=== PATIENT | male | born 1950 | race Hispanic/Latino ===

== ENCOUNTER 2019-12-01 20:28 | Inpatient (IN) | payer MEDICARE ==
[~2019-12-01] VITALS: Ht 180.3 cm; Wt 83.6 kg
[~2019-12-01 20:28] MED LIST: AMIO200T5 PO; ASPI-555 PO; ATOR40TA69 PO; CLOP75TA14 PO; METO-408 PO; VITAMIN D PO
[2019-12-01 22:13] LABS: BASOPHILS % (AUTO) 0.2 % (0.0-5.0); HEMATOCRIT 45.6 % (42-54); LYMPHOCYTES % (AUTO) 3.4 % (21.0-51.0); MEAN CORPUSCULAR HEMOGLOBIN 31.6 pg (27.0-33.0); MEAN CORPUSCULAR HGB CONC 35.5 g/dL (32.0-36.0); MEAN CORPUSCULAR VOLUME 88.9 fL (79-99); MONOCYTES % (AUTO) 3.4 % (3.0-13.0); NEUTROPHILS % (AUTO) 92.6 % (40.0-77.0); PLATELET COUNT (AUTO) 261 K/uL (130-400); RED BLOOD CELL COUNT(AUTO) 5.13 MIL/uL (4.50-6.20); RED CELL DISTRIBUTION WIDTH 12.6 % (11.0-15.5); WHITE BLOOD COUNT (AUTO) 15.5 K/uL (4.8-10.8)
[2019-12-01 22:14] LABS: APPEARANCE,URINE Clear (CLEAR); BILIRUBIN,URINE Negative (NEGATIVE); COLOR,URINE Yellow (YELLOW); GLUCOSE, URINE (UA) Negative (NEGATIVE); KETONES,URINE >=80 mg/dL (NEGATIVE); LEUKOCYTE ESTERASE ,URINE Negative (NEGATIVE); NITRATE,URINE Negative (NEGATIVE); OCCULT BLOOD,URINE Negative (NEGATIVE); PH,URINE 6.5 (5.0-8.0); PROTEIN,URINE POS 1+ mg/dL (NEGATIVE)
[2019-12-01 22:29] LABS: ALBUMIN 4.9 g/dL (3.5-5.0); BILIRUBIN,TOTAL 1.2 mg/dL (0.2-1.0); CREATININE 1.2 mg/dL (0.5-1.5); TOTAL PROTEIN, SERUM 8.8 g/dL (6.0-8.3)
[2019-12-01 22:31] LABS: POTASSIUM 2.6 mmol/L (3.5-5.1)
[2019-12-01] MEDS ORDERED: POTASSIUM CHLORIDE 20MEQ/100ML 100 ML IV ONE (22:48)
[2019-12-01] MEDS ORDERED: ONDANSETRON HCL 4 MG/2 ML VIAL ONE (22:48)
[2019-12-01] MEDS ORDERED: MORPHINE SULFATE 4 MG/1ML SYG ONE (22:49)
[2019-12-01] MEDS ORDERED: SODIUM CHLORIDE 0.9% 1000ML 1,000 ML IV ONE (22:49)
[2019-12-01] MEDS ORDERED: LIDOCAINE HCL-MPF 1% 2ML VIAL ONE (23:00)
[2019-12-02] MEDS ORDERED: SODIUM CHLORIDE 0.9% 1000ML 1,000 ML IV SCH (02:11)
[2019-12-02] MEDS ORDERED: ONDANSETRON HCL 4 MG/2 ML VIAL IV PRN (02:15)
[2019-12-02] MEDS ORDERED: HYDRALAZINE HCL 20 MG/ML VIAL IV PRN (02:15)
[2019-12-02] MEDS ORDERED: POTASSIUM CHLORIDE 10MEQ/100ML 100 ML IV PRN (02:15)
[2019-12-02] MEDS ORDERED: LIDOCAINE HCL-MPF 1% 2ML VIAL IV PRN (02:15)
[2019-12-02] MEDS ORDERED: ACETAMINOPHEN 325 MG TAB PO PRN ×2 (02:15)
[2019-12-02] MEDS ORDERED: LACTULOSE 20 GM/30 ML UDCUP PO PRN (02:15)
[2019-12-02] MEDS ORDERED: MORPHINE SULFATE 2 MG/ML 1ML SYG IV PRN (02:15)
[2019-12-02] MEDS ORDERED: PHARMACY COMMUNICATION MISC SCH (02:30)
[2019-12-02] MEDS ORDERED: SODIUM CHLORIDE 0.9% 1000ML 1,000 ML IV ONE (02:53)
[2019-12-02] MEDS ORDERED: ZOSYN 3.375GM+NS 50ML 50 ML IV ONE ×3 (02:53→20:12)
[2019-12-02 04:33] LABS: BASOPHILS % (AUTO) 0.1 % (0.0-5.0); HEMATOCRIT 40.9 % (42-54); LYMPHOCYTES % (AUTO) 6.5 % (21.0-51.0); MEAN CORPUSCULAR HEMOGLOBIN 32.2 pg (27.0-33.0); MEAN CORPUSCULAR HGB CONC 35.5 g/dL (32.0-36.0); MEAN CORPUSCULAR VOLUME 90.7 fL (79-99); MONOCYTES % (AUTO) 6.2 % (3.0-13.0); NEUTROPHILS % (AUTO) 86.8 % (40.0-77.0); PLATELET COUNT (AUTO) 224 K/uL (130-400); RED BLOOD CELL COUNT(AUTO) 4.51 MIL/uL (4.50-6.20); RED CELL DISTRIBUTION WIDTH 12.8 % (11.0-15.5); WHITE BLOOD COUNT (AUTO) 13.7 K/uL (4.8-10.8)
[2019-12-02 04:56] LABS: CREATININE 1.2 mg/dL (0.5-1.5)
[2019-12-02 05:01] LABS: POTASSIUM 2.9 mmol/L (3.5-5.1)
[2019-12-02] MEDS ORDERED: POTASSIUM CHLORIDE 10MEQ/100ML 100 ML IV ONE (06:03)
[2019-12-02] MEDS ORDERED: LIDOCAINE HCL-MPF 1% 2ML VIAL ONE ×2 (06:03→15:06)
[2019-12-02] MEDS ORDERED: POTASSIUM CHLORIDE 20 MEQ in SODIUM CHLORIDE 0.9% 1000ML 1,000 ML IV SCH (08:07)
[2019-12-02] MEDS: ENOXAPARIN SODIUM 40 MG/0.4 ML SYRINGE SQ SCH (09:00)
[2019-12-02] MEDS: FAMOTIDINE/PF 20 MG/2 ML VIAL IV SCH ×2 (09:00→21:00)
[2019-12-02] MEDS ORDERED: NS-20 MEQ KCL 1000ML 1,000 ML IV ONE (09:03)
[2019-12-02] MEDS ORDERED: ENOXAPARIN SODIUM 40 MG/0.4 ML SYRINGE SQ ONE (10:23)
[2019-12-02] MEDS ORDERED: FAMOTIDINE/PF 20 MG/2 ML VIAL IV ONE ×2 (10:24→22:15)
--- NOTE | 2019-12-02 11:55 | NUR ---
INITIAL SW met with patient. He states he lives with his , Judy Adorno. Patient requested that emergency contacts be his brother, Aj Adorno, [phone] and sister in law, Ninfa Adorno, [phone]. No home services. DME: BPM, glucometer (no insulin). Patient is independent and drives. PCP is Dr. Sony Owens in the [facility]. Pharmacy is [facility] located on in [place]. DCP is home. Addendum: 12/02/19 at 1158 by LUISANA DIANA SS Amended: Links added.
[2019-12-02] MEDS ORDERED: POTASSIUM CHLORIDE 20MEQ/100ML 100 ML IV ONE ×2 (15:06→15:09)
[2019-12-03 00:45] VITALS: BP 152/75
--- NOTE | 2019-12-03 00:55 | NUR ---
PATIENT ADMITTED FROM ER TO ROOM 305. PATIENT [id number], NO ACUTE DISTRESS NOTED. WILL CONTINUE TO MONITOR.
[2019-12-03] MEDS: KETOROLAC TROMETHAMINE 30MG/ML IV PRN ×2 (01:30→18:19)
[2019-12-03 03:44] VITALS: BP 114/68
[2019-12-03] MEDS: ZOSYN 3.375GM+NS 50ML 50 ML IV SCH ×2 (04:40→12:37)
[2019-12-03 05:52] LABS: BASOPHILS % (AUTO) 0.3 % (0.0-5.0); EOSINOPHILS % (AUTO) 0.3 % (0.0-8.0); HEMATOCRIT 39.4 % (42-54); LYMPHOCYTES % (AUTO) 13.3 % (21.0-51.0); MEAN CORPUSCULAR HEMOGLOBIN 31.7 pg (27.0-33.0); MEAN CORPUSCULAR HGB CONC 34.5 g/dL (32.0-36.0); MEAN CORPUSCULAR VOLUME 91.8 fL (79-99); MONOCYTES % (AUTO) 8.1 % (3.0-13.0); NEUTROPHILS % (AUTO) 77.7 % (40.0-77.0); PLATELET COUNT (AUTO) 209 K/uL (130-400); RED BLOOD CELL COUNT(AUTO) 4.29 MIL/uL (4.50-6.20); WHITE BLOOD COUNT (AUTO) 10.5 K/uL (4.8-10.8)
[2019-12-03 06:37] LABS: ALBUMIN 3.5 g/dL (3.5-5.0); BILIRUBIN,TOTAL 1.2 mg/dL (0.2-1.0); CREATININE 1.1 mg/dL (0.5-1.5); MAGNESIUM 2.2 mg/dL (1.80-2.40); PHOSPHORUS 2.3 mg/dL (2.5-4.9); TOTAL PROTEIN, SERUM 7.2 g/dL (6.0-8.3)
[2019-12-03 06:40] LABS: POTASSIUM 2.9 mmol/L (3.5-5.1)
[2019-12-03] MEDS: LIDOCAINE HCL-MPF 1% 2ML VIAL IV PRN ×2 (06:58→16:01)
[2019-12-03] MEDS: POTASSIUM CHLORIDE 20MEQ/100ML 100 ML IV PRN ×2 (06:58→16:02)
--- NOTE | 2019-12-03 08:00 | NUR ---
AM SHIFT ASSESSMENT.
[2019-12-03 08:12] VITALS: BP 116/71
[2019-12-03] MEDS: ENOXAPARIN SODIUM 40 MG/0.4 ML SYRINGE SQ SCH (09:00)
[2019-12-03] MEDS ORDERED: POTASSIUM CHLORIDE 20 MEQ ERTAB PO SCH ×3 (09:30→16:00)
[2019-12-03] MEDS: FAMOTIDINE/PF 20 MG/2 ML VIAL IV SCH (09:46)
[2019-12-03 12:00] VITALS: BP 116/73
[2019-12-03] MEDS ORDERED: POTASSIUM CHLORIDE 20 MEQ ERTAB PO ONE (12:39)
[2019-12-03 15:44] LABS: MAGNESIUM 2.3 mg/dL (1.80-2.40)
[2019-12-03] MEDS ORDERED: POTASSIUM CHLORIDE 10% ELIXIR 20 MEQ/15 ML UDCUP ONE (15:59)
[2019-12-03 16:00] VITALS: BP 137/74
[2019-12-03] MEDS ORDERED: POTASSIUM CHLORIDE 20 MEQ ERTAB PO PRN (16:00)
[2019-12-03] MEDS ORDERED: POTASSIUM CHLORIDE 10% ELIXIR 20 MEQ/15 ML UDCUP PO PRN (16:00)
[2019-12-03] MEDS ORDERED: POTASSIUM CHLORIDE 20MEQ/100ML 100 ML IV PRN (16:00)
[2019-12-03] MEDS ORDERED: LIDOCAINE HCL-MPF 1% 2ML VIAL IV PRN (16:00)
--- NOTE | 2019-12-03 16:00 | NUR ---
POTASSIUM LEVEL RECHECKED AND AFTER PROTOCOL WAS A 3. DR. TAYLOR NOTIFIED AND ORDERS TO REPEAT PROTOCOL. PT. ANXIOUS TO GO HOME. CAREGIVER TO SPOUSE WITH DEMENTIA AND IS WORRIED ABOUT HER. AWARE AND UNDERSTANDS AND WILL DISCHARGE PT. WITH VERY SPECIFIC INST. TO FOLLOW UP WITH PCP. DISCHARGE BY SONY CORBETT RN. RX FOR AUGMENTI GIVEN.PT. VERBALIZED GOOD UNDERSTANDING OFF ALL INST. GIVEN AND SEEMS TO BE COMPLIANT.
[2019-12-03] MEDS ORDERED: AMOX-426 PO (16:27)
== END 2019-12-03 19:30 | disposition home or self-care (01) | DRG 446 ==
LOC: EDH 20:28 → EDHIP 12-02 02:11 → 3BH 12-02 23:34
PROVIDERS: ADMIT Internal Medicine; ATTEND Internal Medicine
DX: K80.00 Calculus of gallbladder with acute cholecystitis without obstruction (principal); I71.4 Abdominal aortic aneurysm, without rupture; K57.90 Diverticulosis of intestine, part unspecified, without perforation or abscess without bleeding; E78.5 Hyperlipidemia, unspecified; E87.6 Hypokalemia; I10 Essential (primary) hypertension; I25.10 Atherosclerotic heart disease of native coronary artery without angina pectoris; I48.91 Unspecified atrial fibrillation; K82.8 Other specified diseases of gallbladder; M47.815 Spondylosis without myelopathy or radiculopathy, thoracolumbar region; I25.2 Old myocardial infarction; Z95.1 Presence of aortocoronary bypass graft; Z95.5 Presence of coronary angioplasty implant and graft; Z82.0 Family history of epilepsy and other diseases of the nervous system
CPT/HCPCS: 36415; 74176; 76705; 78227; 80048; 80053; 81003; 82550; 83605; 83690; 83735; 84100; 84132; 84145; 84484; 85025; 93005; 99291; A9537; G0378; J1650; J1885; J2270; J2405; J2543; J3480; J3490; J7030